=== PATIENT | female | born 1995 | race Caucasian/White ===

== ENCOUNTER 2023-10-18 11:25 | Emergency (ER) | payer OTHER, SELFPAY ==
[2023-10-18 11:37] VITALS: BP 153/97; PULSE 110; RESP 26; TEMP 36.7; O2SAT 99; BMI 23.9
--- NOTE | 2023-10-18 12:24 | CM.SWNOTE ---
ED EARLY HEAD START TEACHER Assessment Note Patient is 28 y/o female who presents to the ED via POV due to concern for anxiety attack. EARLY HEAD START TEACHER enters triage room to meet with patient with marquetry worker present. Patient presents as A/Ox4, tearful, full range, congruent with mood. 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 Patient endorses that her new employers have not been training her properly or or treating her with decency and expecting her to know everything about the job. Patient states she does not have any local supports and she is not receiving child support. Patient endorses she has been crying, shaking, experiencing rapid heart rate, poor sleep and not able to eat. Patient endorses she has been able to care for her kids but has noticed she has less patience. Patient endorses she called PCP office and scheduled a new PCP appt with a new provider at [facility] for this week. Patient states she just signed up for insurance benefits. Patient endorses rx for Sertraline from previous PCP. Patient endorses vague passive SI, denies intent or plans. Patient states she wants to live for her kids and states my kids need me. Patient denies HI. EARLY HEAD START TEACHER and marquetry worker validate patient and endorse that this a very difficult series of circumstances that would be challenging for anyone to manage. EARLY HEAD START TEACHER provides patient with EAP and crisis resources. EARLY HEAD START TEACHER encourages patient to go to PCP appt . EARLY HEAD START TEACHER recommends work note from ED provider, ED provider to evaluate patient and determine appropriateness of PRN anxiety medication. It is the opinion of this EARLY HEAD START TEACHER that patient is safe to d/c to home upon medical clearance. Plan: ED provider to evaluate patient, upon d/c patient to f/u with PCP and seek out EAP and crisis resources. ALEIDA Sanchez
[2023-10-18 13:07] VITALS: BP 131/100; PULSE 71; RESP 16; O2SAT 100
[2023-10-18] MEDS: ACETAMINOPHEN 325 MG TABLET 975 MG PO (13:23)
[2023-10-18 13:55] LABS: Pregnancy Test Urine Negative (Negative)
[2023-10-18] MEDS: hydrOXYzine pamoate 25 MG CAPSULE PO (14:20)
--- NOTE | 2023-10-18 14:33 | ED.ANXIETY ---
HPI - Anxiety <Danilo Damian PA-C - Last Filed: 10/18/23 14:43> General Chief Complaint: Anxiety Stated Complaint: anxiety attack Time Seen by Provider: 10/18/23 12:10 Source: patient Mode of arrival: Ambulatory History of Present Illness HPI narrative: 28-year-old female presents to the ED with 1 day of acute anxiety symptoms. Patient states that she is newly single, having broken up with her boyfriend, single parent to her 2 children, ages 4 and 2. 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 Patient states that she is having stresses on the job, since it is a new job and she has been provided little to no training for it. This morning, her management expressed their dissatisfaction at how behind she was with her responsibilities and took some things away from her. This resulted inpatient feeling acute anxiety, she called her doctor who recommended she be evaluated in the ED. patient states that she is overwhelmed, feels shaky, feels like her heart is racing. Patient denies chest pain, shortness of breath, fever, chills, nausea, vomiting, diarrhea, abdominal pain, dysuria, lightheadedness, dizziness, syncope. Patient does not believe she is . Patient states that she is on a period currently. Patient denies any suicidal or homicidal ideation. Patient has baseline anxiety for which she is on sertraline. Patient is compliant with her medication. Related Data Previous Rx's Medication Instructions Recorded hydroxyzine HCl 25 mg tablet 25 mg PO QID PRN anxiety #30 tabs 10/18/23 Allergies Allergy/AdvReac Type Severity Reaction Status Date / Time No Known Drug Allergies Allergy Verified 10/18/23 13:20 Review of Systems <Danilo Damian PA-C - Last Filed: 10/18/23 14:43> Constitutional Constitutional: Denies chills, Denies fatigue, Denies fever(s), Denies frequent falls, Denies lethargy and Denies weakness Eyes Eyes: Denies change in vision, Denies eye discharge, Denies irritation and Denies loss of vision ENT Ears, Nose, Mouth, and Throat: Denies change in voice, Denies dizziness, Denies neck pain, Denies sore throat and Denies throat swelling Cardiovascular Cardiovascular: Denies chest pain, Denies irregular heart rhythm, Denies lightheadedness, Denies palpitations, Denies dyspnea, Denies dyspnea on exertion and Denies orthopnea Respiratory Respiratory: Denies cough, Denies dyspnea, Denies dyspnea on exertion and Denies wheezing Gastrointestinal Gastrointestinal: Denies abdominal pain, Denies change in bowel habits, Denies diarrhea, Denies nausea and Denies vomiting Musculoskeletal Musculoskeletal: Denies neck pain and Denies numbness Integumentary/Breasts Skin/Breast: Denies pruritus, Denies erythema, Denies rash and Denies wounds Neurologic Neurologic: Denies behavioral changes, Denies confusion, Denies dizziness, Denies frequent falls, Denies loss of vision, Denies numbness and Denies weakness Psychiatric Psychiatric: Reports anxiety, Denies behavioral changes, Denies confusion, Denies depression, Reports panic attacks, Denies homicidal ideation and Denies suicidal ideation Endocrine Endocrine: Denies fatigue, Denies flushing and Denies palpitations Hematologic/Lymphatic Hematologic/Lymphatic: Denies easy bruising Allergic/Immunologic Allergic/Immunologic: Denies urticaria, Denies throat swelling and Denies wheezing Exam <Danilo Damian PA-C - Last Filed: 10/18/23 14:43> Narrative Exam Narrative: Const General:?cooperative, healthy appearing and comfortable [facility] Head:?normal to inspection Ears:?hearing grossly normal bilaterally Nose:?external nose normal Face and sinus:?normal facial exam and sinuses nontender Mouth:?oral mucosae normal Throat:?posterior oropharynx normal Eyes General:?appearance normal, both eyes and all related structures Neck Neck:?normal visual inspection and no lymphadenopathy noted Resp Effort & Inspection:?normal respiratory effort Auscultation:?clear to auscultation bilaterally Cardio Rate:?regular rate Rhythm:?regular rhythm Neuro General:?patient alert, patient awake and patient oriented x3 Initial Vital Signs Initial Vital Signs: Vital Signs Temperature 98.0 F 10/18/23 11:37 Pulse Rate 110 H 10/18/23 11:37 Respiratory Rate 26 H 10/18/23 11:37 Blood Pressure 153/97 H 10/18/23 11:37 Pulse Oximetry 99 10/18/23 11:37 Oxygen Delivery Method Room Air 10/18/23 11:37 <Yvette Jacobs DO - Last Filed: 10/23/23 07:08> Initial Vital Signs Initial Vital Signs: Vital Signs Temperature 98.0 F 10/18/23 11:37 Pulse Rate 110 H 10/18/23 11:37 Respiratory Rate 26 H 10/18/23 11:37 Blood Pressure 153/97 H 10/18/23 11:37 Pulse Oximetry 99 10/18/23 11:37 Oxygen Delivery Method Room Air 10/18/23 11:37 Course <Danilo Damian PA-C - Last Filed: 10/18/23 14:43> Orders Ordered: Discontinued Medications Acetaminophen (Acetaminophen 325 Mg Tablet) 975 mg PO NOW ONE Stop: 10/18/23 12:56 Last Admin: 10/18/23 13:23 Dose: 975 mg Documented By: VENITA Hydroxyzine Pamoate (Hydroxyzine Pamoate 25 Mg Capsule) 25 mg PO NOW ONE Stop: 10/18/23 14:00 Last Admin: 10/18/23 14:20 Dose: 25 mg Documented By: VENITA Vital Signs Vital signs: Vital Signs - 8 hr 10/18/23 11:37 10/18/23 13:07 Temperature 98.0 F Pulse Rate 110 H 71 Respiratory Rate 26 H 16 Blood Pressure 153/97 H 131/100 H Pulse Oximetry 99 100 Oxygen Delivery Method Room Air Room Air <Yvette Jacobs DO - Last Filed: 10/23/23 07:08> Orders Ordered: Discontinued Medications Acetaminophen (Acetaminophen 325 Mg Tablet) 975 mg PO NOW ONE Stop: 10/18/23 12:56 Last Admin: 10/18/23 13:23 Dose: 975 mg Documented By: VENITA Hydroxyzine Pamoate (Hydroxyzine Pamoate 25 Mg Capsule) 25 mg PO NOW ONE Stop: 10/18/23 14:00 Last Admin: 10/18/23 14:20 Dose: 25 mg Documented By: VENITA Vital Signs Vital signs: Vital Signs - 8 hr 10/18/23 11:37 10/18/23 13:07 Temperature 98.0 F Pulse Rate 110 H 71 Respiratory Rate 26 H 16 Blood Pressure 153/97 H 131/100 H Pulse Oximetry 99 100 Oxygen Delivery Method Room Air Room Air MDM - Anxiety <LADY Fox Last Filed: 10/18/23 14:43> Lab Data Labs: Lab Results 10/18/23 Range/Units 13:00 Urine Test Negative (Negative) MDM Narrative Medical decision making narrative: 28-year-old female presents to the ED with 1 day of acute anxiety symptoms. Physical exam is reassuring, unlikely cardiac or other organic etiology. Urine is negative. Patient's symptoms most consistent with an acute anxiety attack resulting from her personal and work stress. Patient denies any suicidal or homicidal ideation. Patient's headache treated with Tylenol with good relief. Patient was given a dose of hydroxyzine for anxiety. Prescribed hydroxyzine for the next few days until patient can follow-up with her PCP. Patient has an appointment later this week with her PCP. Social work was consulted, resources provided to patient. ED return precautions discussed with patient. Patient verbalized understanding. Medical records reviewed: Yes <Yvette Jacobs DO - Last Filed: 10/23/23 07:08> Lab Data Labs: Lab Results 10/18/23 Range/Units 13:00 Urine Test Negative (Negative) Discharge Plan Departure Patient Disposition: Home Clinical Impression: Acute anxiety Instructions: DI for Anxiety -- Adult Activity Restrictions/Additional Instructions: You were evaluated in the ED today for acute anxiety and headache. Your symptoms improved with hydroxyzine and Tylenol. You are being prescribed hydroxyzine for the next few days until you are able to see your doctor. Please keep your appointment for later this week with your doctor as scheduled. Return to the ED if you have worsening symptoms, chest pain, shortness of breath, suicidal thoughts or thoughts of hurting others. Prescriptions: New hydroxyzine HCl 25 mg tablet 25 mg PO QID PRN (Reason: anxiety) Qty: 30 0RF Stand Alone Forms: Patient Portal/API, Work Release Note ED Sign-out <Yvette Jacobs DO - Last Filed: 10/23/23 07:08> Cosign ED Attending Cosestrellitaature Attestation: I was immediately available in the department for consultation.
[2023-10-18 14:52] VITALS: BP 135/89; PULSE 74; RESP 16; TEMP 36.6; O2SAT 100
== END 2023-10-18 14:53 | disposition home or self-care (01) ==
PROVIDERS: Emergency Provider Student in an Organized Health Care Education/Training Program
DX: F41.9 Anxiety disorder, unspecified (principal)
CPT/HCPCS: 81025; 99283

== ENCOUNTER 2023-12-05 12:50 | Emergency (ER) | payer OTHER, MEDICAID, SELFPAY ==
[2023-12-05 12:52] VITALS: BP 145/80; PULSE 95; RESP 18; TEMP 36.7; O2SAT 98; BMI 23.0
--- NOTE | 2023-12-05 13:38 | ED_ITS ---
HPI - Skin/Abscess/Foreign Bdy <Danilo Damian PA-C - Last Filed: 12/05/23 14:50> General Chief complaint: Skin/Abscess/Foreign Body Stated complaint: skin rash on chin History of Present Illness HPI narrative: 28-year-old female with past medical history depression, anxiety presents to the ED with 1 week of skin rash on her chin. Patient is complaining of a drainage from the chin, has used zinc oxide with no relief. Patient states that the rash on her chin started as a small pimple, which she admits to repeatedly picking, causing the rash to spread and worsened. Patient also has a similar healing rash on the forehead. Patient appears anxious and distraught. Patient states that she has been picking on her skin since she thinks there is something in there, has a Ziploc bag of little black particles that look like scabs. Patient states that she has spending a lot of time picking her skin late at night. Patient is newly single, single mom of 2 children and under significant stress currently. Patient has a new PCP, states that she has been switched from fluoxetine to buspirone recently. Patient denies suicidal ideation, homicidal ideation. Patient endorses having seen a seam rubber long time ago. Patient denies fever, chills, nausea, vomiting. Related Data Previous Rx's Medication Instructions Recorded hydroxyzine HCl 25 mg tablet 25 mg PO QID PRN anxiety #30 tabs 10/18/23 cephalexin 500 mg capsule 500 mg PO QID 10 days #40 caps 12/05/23 mupirocin 2 % topical ointment 1 applic topical TID 5 days #22 12/05/23 grams Allergies Allergy/AdvReac Type Severity Reaction Status Date / Time No Known Drug Allergies Allergy Verified 10/18/23 13:20 Review of Systems <Danilo Damian PA-C - Last Filed: 12/05/23 14:50> Constitutional Constitutional: Denies chills, Denies fatigue, Denies fever(s), Denies frequent falls, Denies lethargy and Denies weakness Eyes Eyes: Denies change in vision, Denies eye discharge, Denies irritation and Denies loss of vision ENT Ears, Nose, Mouth, and Throat: Denies change in voice, Denies dizziness, Denies neck pain, Denies sore throat and Denies throat swelling Cardiovascular Cardiovascular: Denies chest pain, Denies irregular heart rhythm, Denies lightheadedness, Denies palpitations, Denies dyspnea, Denies dyspnea on exertion and Denies orthopnea Respiratory Respiratory: Denies cough, Denies dyspnea, Denies dyspnea on exertion and Denies wheezing Gastrointestinal Gastrointestinal: Denies abdominal pain, Denies change in bowel habits, Denies diarrhea, Denies nausea and Denies vomiting Musculoskeletal Musculoskeletal: Denies neck pain and Denies numbness Integumentary/Breasts Skin/Breast: Denies pruritus, Denies erythema, Reports rash and Denies wounds Neurologic Neurologic: Denies behavioral changes, Denies confusion, Denies dizziness, Denies frequent falls, Denies loss of vision, Denies numbness and Denies weakness Psychiatric Psychiatric: Denies anxiety, Denies behavioral changes, Denies confusion, Denies depression, Denies homicidal ideation and Denies suicidal ideation Endocrine Endocrine: Denies fatigue, Denies flushing and Denies palpitations Hematologic/Lymphatic Hematologic/Lymphatic: Denies easy bruising Allergic/Immunologic Allergic/Immunologic: Denies urticaria, Denies throat swelling and Denies wheezing Patient History <Danilo Damian PA-C - Last Filed: 12/05/23 14:50> Social History Smoking Status: Never smoker Smoking Status: Never smoker alcohol intake frequency: a few times a month Alcohol type: wine Substance Use Type: does not use Exam <Danilo Damian PA-C - Last Filed: 12/05/23 14:50> Narrative Exam Narrative: Const General:?cooperative, healthy appearing and comfortable [facility] Head:?normal to inspection Ears:?hearing grossly normal bilaterally Nose:?external nose normal Face and sinus:?normal facial exam and sinuses nontender Mouth:?oral mucosae normal Throat:?posterior oropharynx normal Eyes General:?appearance normal, both eyes and all related structures Neck Neck:?normal visual inspection and no lymphadenopathy noted Resp Effort & Inspection:?normal respiratory effort Auscultation:?clear to auscultation bilaterally Cardio Rate:?regular rate Rhythm:?regular rhythm Integumentary There is an erythematous, diffuse rash with discharge and honey-colored crusting. Rash is most consistent with a staph infection/impetigo. Rash appears on patient's chin and on patient's forehead. Patient also has a healing rash on the chest. Neuro General:?patient alert, patient awake and patient oriented x3 Initial Vital Signs Initial Vital Signs: Vital Signs Temperature 98.0 F 12/05/23 12:52 Pulse Rate 95 H 12/05/23 12:52 Respiratory Rate 18 12/05/23 12:52 Blood Pressure 145/80 H 12/05/23 12:52 Pulse Oximetry 98 12/05/23 12:52 Oxygen Delivery Method Room Air 12/05/23 12:52 <Yvette Desai MD - Last Filed: 12/05/23 16:25> Initial Vital Signs Initial Vital Signs: Vital Signs Temperature 98.0 F 12/05/23 12:52 Pulse Rate 95 H 12/05/23 12:52 Respiratory Rate 18 12/05/23 12:52 Blood Pressure 145/80 H 12/05/23 12:52 Pulse Oximetry 98 12/05/23 12:52 Oxygen Delivery Method Room Air 12/05/23 12:52 Course <Danilo Damian PA-C - Last Filed: 12/05/23 14:50> Vital Signs Vital signs: Vital Signs - 8 hr 12/05/23 12:52 12/05/23 14:14 Temperature 98.0 F Pulse Rate 95 H 77 Respiratory Rate 18 16 Blood Pressure 145/80 H 121/83 Pulse Oximetry 98 100 Oxygen Delivery Method Room Air Room Air <Yvette Desai MD - Last Filed: 12/05/23 16:25> Vital Signs Vital signs: Vital Signs - 8 hr 12/05/23 12:52 12/05/23 14:14 Temperature 98.0 F Pulse Rate 95 H 77 Respiratory Rate 18 16 Blood Pressure 145/80 H 121/83 Pulse Oximetry 98 100 Oxygen Delivery Method Room Air Room Air MDM - Skin/Abscess/Foreign Bdy <Danilo Damian PA-C - Last Filed: 12/05/23 14:50> MDM Narrative Medical decision making narrative: 28-year-old female with past medical history depression, anxiety presents to the ED with 1 week of skin rash on her chin. Patient's symptoms are most consistent with a staph infection/impetigo. Patient denies substance use. Patient does endorse skin picking. Etiology of patient's condition likely has some component of mental health etiology such as OCD, dermotillomania. Discussed with patient who is tearful and understanding of the condition. She does understand that she needs to stop picking on her skin and agrees to follow-up with her PCP for further evaluation and possible psych referral. Prescribed antibiotics for the overlying impetigo. ED return precautions were discussed with patient. Patient verbalized understanding. Medical records reviewed: Yes Discharge Plan Departure Patient Disposition: Home Clinical Impression: Impetigo Instructions: DI for Cellulitis -- Adult Activity Restrictions/Additional Instructions: You were evaluated in the ED today for a skin rash. It appears that you have a bacterial infection called impetigo for which you are being prescribed 2 antibiotics. Please take the cephalexin by mouth for 10 days as prescribed. Please also apply the antibiotic ointment mupirocin for 5 days. Please refrain from picking on the skin. Please follow-up with your PCP and psychiatrist for further evaluation. Return to the ED if you have worsening symptoms, fever, chills, persistent vomiting. Prescriptions: New cephalexin 500 mg capsule 500 mg PO QID 10 Days Qty: 40 0RF mupirocin 2 % ointment 1 applic topical TID 5 Days Qty: 22 0RF No Action hydroxyzine HCl 25 mg tablet 25 mg PO QID PRN (Reason: anxiety) Qty: 30 0RF Referrals: Forest Dotson MD [Primary Care Provider] - Stand Alone Forms: Patient Portal/API ED Sign-out <Yvette Desai MD - Last Filed: 12/05/23 16:25> Cosign ED Attending Alemature Attestation: I did not see this patient. I was available all times for consultation.
[2023-12-05 14:14] VITALS: BP 121/83; PULSE 77; RESP 16; O2SAT 100
== END 2023-12-05 14:25 | disposition home or self-care (01) ==
PROVIDERS: Emergency Provider Student in an Organized Health Care Education/Training Program; PCP Internal Medicine
DX: L01.00 Impetigo, unspecified (principal)
CPT/HCPCS: 99281

== ENCOUNTER → 2024-04-11 12:01 | Outpatient (CLI) | payer OTHER, MEDICAID, SELFPAY ==
[2024-04-11 12:32] LABS: Add Manual Diff / Slide Review NO; Basophils Absolute Auto 100 /uL (0-100); Basophils Percent Auto 0.7 % (0-2); Eosinophils Absolute Auto 100 /uL (0-450); Eosinophils Percent Auto 0.9 % (2-4); Hematocrit 40.8 % (36-46); Hemoglobin 13.5 g/dL (12.0-16.0); Lymphocytes Absolute Auto 2000 /uL (1100-4500); Lymphocytes Percent Auto 15.4 % (25-40); Mean Corpuscular HGB Conc 33.2 % (30-36); Mean Corpuscular Hemoglobin 29.6 PG (26-34); Mean Corpuscular Volume 89.2 fL (80-100); Monocytes Absolute Auto 700 /uL (0-900); Monocytes Percent Auto 5.2 % (3-14); Neutrophils Absolute Auto 10000 /uL (1500-7000); Neutrophils Percent Auto 77.8 % (50-75); Platelet Count 316 X10^3/uL (150-400); Red Blood Cell Count 4.57 X10^6/uL (4.0-5.2); Red Cell Distribution Width 13.7 % (11.6-14.8); White Blood Cell Count 12.8 X10^3/uL (4.5-11.0)
[2024-04-11 13:05] LABS: Free T3, Triiodothyronine Free 2.66 pg/mL (2.77-5.27); Free T4, Direct Thyroxine 0.66 ng/dL (0.78-2.19)
[2024-04-11 13:08] LABS: Alanine Aminotransferase 15 IU/L (<35); Albumin 4.6 g/dL (3.5-5.0); Alkaline Phosphatase 62 U/L (38-126); Aspartate Aminotransferase 22 IU/L (14-36); BUN Creatinine Ratio 14.5 (6-22); Bilirubin Total 0.4 mg/dL (0.2-1.3); Blood Urea Nitrogen 9 mg/dL (7-17); Carbon Dioxide 25 mmol/L (22-32); Chloride 106 mmol/L (98-107); Estimated Glomerular Filt Rate > 60 mL/min (>60); Glucose 93 mg/dL (70-100); HEMOLYSIS < 15 (0-50); Potassium 4.3 mmol/L (3.4-5.1); Sodium 138 mmol/L (137-145); Total Protein 7.1 g/dL (6.3-8.2)
[2024-04-11 13:09] LABS: Albumin Globulin Ratio 1.8 (1.0-2.8); Globulin 2.5 g/dL (1.7-4.1)
== END ==
PROVIDERS: PCP Internal Medicine; Referring Provider Internal Medicine; Visit Provider Internal Medicine
DX: R63.4 Abnormal weight loss (principal)
CPT/HCPCS: 36415; 80053; 84439; 84443; 84481; 85025

== ENCOUNTER 2024-08-26 19:44 | Emergency (ER) | payer OTHER, MEDICAID, SELFPAY ==
[2024-08-26 19:47] VITALS: BP 137/85; PULSE 98; RESP 20; TEMP 37.3; O2SAT 100; BMI 21.2
[2024-08-26 20:38] LABS: Appearance Urine UA CLEAR; Bilirubin Urine UA NEGATIVE (NEGATIVE); Color Urine UA YELLOW; Glucose Urine UA NEGATIVE (Negative); Ketones Urine UA NEGATIVE (NEGATIVE); Leukocyte Esterase Urine UA NEGATIVE (NEGATIVE); Nitrite Urine UA NEGATIVE (Negative); Occult Blood Urine UA TRACE-INTACT (Negative); Protein Urine UA NEGATIVE (Negative); Specific Gravity Urine UA 1.025 (1.000-1.035); Urobilinogen Urine UA 0.2 E.U./dL (0.2)
[2024-08-26 20:39] LABS: pH Urine UA 5.5 (4.5-8.0)
[2024-08-26 20:42] LABS: Pregnancy Test Urine Negative (Negative); UR Morphine/Opiate cutoff 300 Negative (Negative); Ur Creatinine Normal (Normal); Ur Specific Gravity Normal (Normal); Urine Amphetamines Positive (Negative); Urine Barbiturates Negative (Negative); Urine Benzodiazepines Negative (Negative); Urine Cocaine Negative (Negative); Urine MDMA Negative (Negative); Urine Methadone Negative (Negative); Urine Methamphetamines Negative (Negative); Urine Oxycodone Negative (Negative); Urine Phencyclidine Negative (Negative); Urine Tetrahydrocannabinol Positive (Negative); Urine Tricyclic Antidepressant Negative (Negative); Urine pH Normal (Normal)
[2024-08-26 20:44] LABS: Add Manual Diff / Slide Review NO; Basophils Absolute Auto 100 /uL (0-100); Eosinophils Absolute Auto 300 /uL (0-450); Eosinophils Percent Auto 3.3 % (2-4); Hematocrit 41.5 % (36-46); Hemoglobin 13.8 g/dL (12.0-16.0); Lymphocytes Absolute Auto 2400 /uL (1100-4500); Lymphocytes Percent Auto 26.2 % (25-40); Mean Corpuscular HGB Conc 33.2 % (30-36); Mean Corpuscular Volume 90.5 fL (80-100); Monocytes Absolute Auto 600 /uL (0-900); Monocytes Percent Auto 6.8 % (3-14); Neutrophils Absolute Auto 5800 /uL (1500-7000); Neutrophils Percent Auto 62.7 % (50-75); Platelet Count 283 X10^3/uL (150-400); Red Blood Cell Count 4.59 X10^6/uL (4.0-5.2); Red Cell Distribution Width 13.1 % (11.6-14.8); White Blood Cell Count 9.2 X10^3/uL (4.5-11.0)
[2024-08-26 20:51] LABS: Albumin 4.6 g/dL (3.5-5.0); Albumin Globulin Ratio 1.5 (1.0-2.8); Alkaline Phosphatase 54 U/L (38-126); Aspartate Aminotransferase 35 IU/L (14-36); BUN Creatinine Ratio 22.5 (6-22); Bilirubin Total 0.4 mg/dL (0.2-1.3); Blood Urea Nitrogen 23 mg/dL (7-17); Calcium 9.4 mg/dL (8.4-10.2); Carbon Dioxide 30 mmol/L (22-32); Estimated Glomerular Filt Rate > 60 mL/min (>60); Glucose 83 mg/dL (70-100); HEMOLYSIS < 15 (0-50); Potassium 4.3 mmol/L (3.4-5.1); Sodium 137 mmol/L (137-145); Total Protein 7.6 g/dL (6.3-8.2)
[2024-08-26] MEDS: LORazepam 0.5 MG TABLET 1 MG PO (20:52)
[2024-08-26 20:59] LABS: Acetaminophen < 10 ug/mL (10-30); Alanine Aminotransferase 40 IU/L (<35); Chloride 101 mmol/L (98-107); Ethanol (ETOH) < 10 mg/dL; Salicylate < 1.0 mg/dL (<20)
[2024-08-26 21:15] LABS: Free T4, Direct Thyroxine 0.72 ng/dL (0.78-2.19)
[2024-08-26 21:29] LABS: Thyroid Stimulating Hormone 5.93 uIU/mL (0.47-4.68)
--- NOTE | 2024-08-26 21:40 | ED_ITS ---
HPI - Psych General Chief Complaint: Psychiatric Symptoms Stated Complaint: mental health episode Time Seen by Provider: 08/26/24 21:40 Source: patient and family Mode of arrival: Ambulatory History of Present Illness HPI Narrative: Patient is a 29-year-old female who has history of ADHD depression presenting today with worsening depression. She has had ongoing stressors over the last 1 week she can not stop crying. She has had thoughts of suicide but will not because she is a mother. She has no specific plan. She is here with a good friend and her mom. She is having difficulties with her own provider who will not always prescribed her ADHD medication. He took her off all of her anxiety depression medication. She has significant hopelessness. She denies visual or auditory hallucinations. She reports that she is lost all of her hair she does not feel like herself. She is requesting mental health evaluation and help. Patient is not able to go to work. 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 It no physician we will treat her so she has been Googling. She has been trying to help herself. She feels like her children are also infected. She base and thorax his trying many other things. Family report that her mental health and stability is deteriorating quickly Related Data Home Medications Medication Instructions Recorded Confirmed lorazepam 1 mg tablet 1 mg PO 3XD 08/26/24 08/26/24 Previous Rx's Medication Instructions Recorded hydroxyzine HCl 25 mg tablet 25 mg PO QID PRN anxiety #30 tabs 10/18/23 Allergies Allergy/AdvReac Type Severity Reaction Status Date / Time No Known Drug Allergies Allergy Verified 10/18/23 13:20 Patient History Social History Smoking Status: Current every day smoker Smoking Status: Current every day smoker tobacco type: vaping alcohol intake frequency: holidays/special occasions only Alcohol type: wine Substance Use Type: marijuana Exam Initial Vital Signs Initial Vital Signs: Vital Signs Temperature 99.2 F 08/26/24 19:47 Pulse Rate 98 H 08/26/24 19:47 Respiratory Rate 20 08/26/24 19:47 Blood Pressure 137/85 08/26/24 19:47 Pulse Oximetry 100 08/26/24 19:47 Oxygen Delivery Method Room Air 08/26/24 19:47 GENERAL: Alert tearful 29-year-old female CARDIOVASCULAR: peripheral pulses in tact, cap refill <2 sec RESPIRATORY: No respiratory distress, speaks in full sentences without difficulty EXTREMITIES: Normal range of motion, no clubbing or edema. Neurovascularly intact NEUROLOGICAL: Cranial nerves II through XII grossly intact. Normal gait and speech. SKIN: Warm, dry, no petechiae, no rashes or lesions. Course Orders Ordered: Discontinued Medications Lorazepam (Lorazepam 0.5 Mg Tablet) 1 mg PO NOW ONE Stop: 08/26/24 20:32 Last Admin: 08/26/24 20:52 Dose: 1 mg Documented By: BARBER Lorazepam (Lorazepam 0.5 Mg Tablet) 1 mg PO NOW ONE Stop: 08/27/24 11:41 Last Admin: 08/27/24 11:46 Dose: 1 mg Documented By: CHADWICK Vital Signs Vital signs: Vital Signs - 8 hr 08/26/24 19:47 Temperature 99.2 F Pulse Rate 98 H Respiratory Rate 20 Blood Pressure 137/85 Pulse Oximetry 100 Oxygen Delivery Method Room Air MDM - Psych Lab Data 08/26/24 20:29 08/26/24 20:29 Labs: Lab Results 08/26/24 08/26/24 08/26/24 Range/Units 20:10 20:10 20:29 WBC 9.2 (4.5-11.0) X10^3/uL RBC 4.59 (4.0-5.2) X10^6/uL Hgb 13.8 (12.0-16.0) g/dL Hct 41.5 (36-46) % MCV 90.5 (80-100) fL MCH 30.0 (26-34) PG MCHC 33.2 (30-36) % RDW 13.1 (11.6-14.8) % Plt Count 283 (150-400) X10^3/uL Neut % (Auto) 62.7 (50-75) % Lymph % (Auto) 26.2 (25-40) % [place] % (Auto) 6.8 (3-14) % Eos % (Auto) 3.3 (2-4) % Baso % (Auto) 1.0 (0-2) % Neut # (Auto) 5800 (6140-3456) /uL Lymph # (Auto) 2400 (8515-1828) /uL [place] # (Auto) 600 (0-900) /uL Eos # (Auto) 300 (0-450) /uL Baso # (Auto) 100 (0-100) /uL Sodium 137 (137-145) mmol/L Potassium 4.3 (3.4-5.1) mmol/L Chloride 101 (98-107) mmol/L Carbon Dioxide 30 (22-32) mmol/L BUN 23 H (7-17) mg/dL Creatinine 1.02 (0.52-1.04) mg/dL Estimated GFR > 60 (>60) mL/min BUN/Creatinine Ratio 22.5 H (6-22) Glucose 83 (70-100) mg/dL Calcium 9.4 (8.4-10.2) mg/dL Total Bilirubin 0.4 (0.2-1.3) mg/dL AST 35 (14-36) IU/L ALT 40 H (<35) IU/L Alkaline Phosphatase 54 (38-126) U/L Total Protein 7.6 (6.3-8.2) g/dL Albumin 4.6 (3.5-5.0) g/dL Globulin 3.0 (1.7-4.1) g/dL Albumin/Globulin Ratio 1.5 (1.0-2.8) TSH 5.93 H (0.47-4.68) uIU/mL Free T4 0.72 L (0.78-2.19) ng/dL Urine Color Yellow Urine Appearance Clear Urine pH 5.5 Normal (4.5-8.0) Ur Specific [place] 1.025 (1.000-1.035) Urine Protein Negative (Negative) Urine Glucose (UA) Negative (Negative) g/dL Urine Ketones Negative (NEGATIVE) Urine Occult Blood Trace-intact (Negative) Urine Nitrate Negative (Negative) Urine Bilirubin Negative (NEGATIVE) Urine Urobilinogen 0.2 (0.2) E.U./dL Ur Leukocyte Esterase Negative (NEGATIVE) Urine Test Negative (Negative) Salicylates < 1.0 (<20) mg/dL U Opiates 300ng/mL cut Negative (Negative) Ur Oxycodone Screen Negative (Negative) Urine Methadone Screen Negative (Negative) Acetaminophen < 10 (10-30) ug/mL Ur Barbiturates Screen Negative (Negative) U Tricyclic Antidepress Negative (Negative) Ur Phencyclidine Scrn Negative (Negative) Ur Amphetamines Screen Positive H (Negative) U Methamphetamines Scrn Negative (Negative) Ur MDMA Scrn (Ecstasy) Negative (Negative) U Benzodiazepines Scrn Negative (Negative) Urine Cocaine Screen Negative (Negative) U Marijuana (THC) Screen Positive H (Negative) Urine Specific [place] Normal (Normal) Ethyl Alcohol < 10 ( - 10) mg/dL Ur Creatinine Normal (Normal) MDM Narrative Medical decision making narrative: Patient is a 29-year-old tearful female presenting today with depression and anxiety. She is thoughts of self harm but no actual plan. She can not stop crying she is very tearful on evaluation. She has lost a lot of her hair she is noted to be hypothyroid TSH was 7 now 5.9. She is requesting for mental health stabilization. Patient is severely depressed and frustrated not able to go to work can not stop crying not sleeping not able to function. She has good insight does not meet involuntary criteria at this time Accepted at [facility] Signed out to Dr. Jeronimo Discharge Plan Departure Patient Disposition: Xfer Psychiatric Hosp Clinical Impression: Suicidal ideation Prescriptions: No Action hydroxyzine HCl 25 mg tablet 25 mg PO QID PRN (Reason: anxiety) Qty: 30 0RF lorazepam 1 mg tablet 1 mg PO 3XD Referrals: Forest Dotson MD [Primary Care Provider] -
--- NOTE | 2024-08-26 22:38 | PC.NURSE ---
POLITICAL SCIENCE CHAIR note: Spoke to Ashley at [facility]. They will have female beds in the morning. Faxed a packet down there with patient information. They are reviewing it.
[2024-08-27 08:11] VITALS: BP 109/59; PULSE 73; RESP 18; TEMP 36.7; O2SAT 95
--- NOTE | 2024-08-27 08:45 | PC.NURSE ---
MICROWAVE TECHNICIAN Note: Patient's sister arrived at ED to cigar packer and picker keys. Patient gave permission to give keys to sister. Belonging bag opened and keys found in front of patient. Belonging bag secured in cabinet after keys were found.
--- NOTE | 2024-08-27 11:37 | CM.SWNOTE ---
ED PETROLEUM ENGINEERING PROFESSOR Note: Reviewed EMR and discussed patient with ED staff for pt?s medical status. Per EMR, pt has been accepted at [facility] and is expected to arrive at 1300, [facility] transport to arrive at 1200. PETROLEUM ENGINEERING PROFESSOR entered room to meet with patient, introduced self and role. Patient was tearful but cooperative, requested hand soap and appreciated toothbrush/toothpaste offered by this PETROLEUM ENGINEERING PROFESSOR. Patient confirms she is still agreeable to plans for inpatient treatment and verbalized understanding of transport arriving at 1200. PETROLEUM ENGINEERING PROFESSOR provided empathic listening and validated patient concerns. Pt requesting PRN lorazepam, PETROLEUM ENGINEERING PROFESSOR notified continuous vulcanizing machine operator. ED PETROLEUM ENGINEERING PROFESSOR called [facility] Intake and spoke with Prachi, per intake, no other clinicals needed for patient at this time and they are expecting patient to arrive at 1300. RN-RN Report #[phone], [address]. Plan: Patient to discharge to [facility] via [facility] at 1200, ED PETROLEUM ENGINEERING PROFESSOR following for any discharge needs that may arise. [employer]
[2024-08-27] MEDS: LORazepam 0.5 MG TABLET 1 MG PO (11:46)
[2024-08-27 12:00] VITALS: BP 117/77; PULSE 78; RESP 16; TEMP 36.8; O2SAT 99
--- NOTE | 2024-08-27 12:16 | PC.NURSE ---
1200: Patient prepared for transport via [facility] to [facility]. Report given to Magnus Valle, EMT who is with patient on transport. Vitals WNL. Patient's belongings gathered, correctly labeled and handed off to EMT's. 1210: [facility] health unit called and spoke with KATARZYNA Rockwell for [id number] handoff. Called [address] (#[phone]). All questions answered and staff told to expect patient in about an hour coming via [facility] ambulance.
== END 2024-08-27 12:10 ==
PROVIDERS: Emergency Medicine; Emergency Provider Student in an Organized Health Care Education/Training Program; PCP Internal Medicine
DX: R45.851 Suicidal ideations (principal)
CPT/HCPCS: 36415; 80053; 80305; 80320; 80329; 81003; 81025; 84439; 84443; 85025; 99284; G0480